=== PATIENT | male | born 1960 | race Caucasian/White ===

== ENCOUNTER 2017-02-23 22:02 | Emergency (ER) | payer OTHER ==
--- NOTE | ~2017-02-23 | ER ---
PATIENT'S NAME: [facility] AGE: 57 Y [address] ROOM: [place], [place] [address] LOCATION: [facility] ADMIT DATE: 02/23/2017 ER/Outpatient Report DISCHARGE DATE: 02/23/2017 FAMILY PHYSICIAN: Physician, Unknown ATTENDING PHYSICIAN: Celeste Castillo CHIEF COMPLAINT: Left hand laceration. TIME OF THE PATIENT ARRIVAL: 2202 hours. TIME OF THE PATIENT EVALUATION: 2202 hours. HISTORY OF PRESENT ILLNESS: This 57-year-old male presents to the ER with a left hand laceration that happened just prior to arrival. The patient was loading food at [facility] on a loading truck. He states he went to push the pallet and his hand was cut with either the pallet board or nail that was on the pallet board. He states that it cut him right through his glove. He states he is up-to-date on his tetanus shot. He states he has good sensation to his hand and his fingers and he does have good range of motion of his hand as well. He denies any other injury at this time. ALLERGIES: NO KNOWN ALLERGIES. MEDICATIONS: Please see medication list nurse's notes. PAST MEDICAL HISTORY: Hypertension. He had a left knee surgery. SOCIAL HISTORY: Denies smoking, drug, or alcohol use. REVIEW OF SYSTEMS: CONSTITUTIONAL: Denies any change in weight or fatigue. MUSCULOSKELETAL: No weakness or myalgias. HEME: No easy bruising or bleeding. SKIN: He has a laceration to his left hand. PHYSICAL EXAMINATION: VITAL SIGNS: Pulse is 85, respirations 16, temperature 98.2 degrees PATIENT'S NAME: CAR[facility]INA [facility] AGE: 57 Y [address] ROOM: [place], [place] [address] LOCATION: [facility] ADMIT DATE: 02/23/2017 ER/Outpatient Report DISCHARGE DATE: 02/23/2017 FAMILY PHYSICIAN: Physician, Unknown ATTENDING PHYSICIAN: Celeste Castillo tympanically, blood pressure is 185/111, and saturations 95% on room air. [place] Coma Score is 15. GENERAL: Alert, very anxious, 57-year-old male in [id number] distress. HEENT: Head: Normocephalic. He does display moist mucous membranes. EXTREMITIES: No clubbing or cyanosis. To his left upper extremity, he has good sensation distally to all of his fingers. He is able to flex and extend all of his fingers with no difficulty. He has good strength in his left thumb. He has good radial pulse in the left upper extremity as well. SKIN: He has a 6-cm laceration noted to the thenar eminence of the left hand. Does appear to have nicked the muscle. He does have some bleeding during examination. LABORATORY DATA: None were done. X-RAYS: X-rays of the left hand showed no foreign objects or fractures to the hand. IMPRESSION: A 6-cm laceration to the left thenar eminence. ASSESSMENT AND PLAN: Discussed the patient's care with Dr. Castillo. Dr. Castillo also evaluated the laceration. I did cleanse the laceration site with normal saline. I numbed the site with 1% lidocaine. He did have a small arterial vessel that was bleeding; so, we did inject that area with lidocaine with epi and applied pressure, which did allow the bleeding to stop at this time. I did cleanse around the laceration site with Betadine and flushed thoroughly with normal saline. I did place 4 subcutaneous sutures with 5-0 Vicryl and closed the wound with Ethilon. The patient did tolerate this well. We did cleanse the hand, placed the antibiotic ointment and bandage to the hand as well. I will cover him with Keflex to use as directed. He was also given a work note for restrictions on lifting until his sutures are removed in 10 to 14 days. We did give him a wound care handout. He may take Tylenol or ibuprofen as needed for pain control. The patient understands and agrees with care. ESTELLE ARMSTRONG PA-C FOR DO QUETA VERA/brendan /[id number] ATTENDING ADDENDUM: I saw and evaluated the patient. I have discussed with the PA, agree with the PA's findings and plan and agree with the documented note above. CELESTE CASTILLO DO d: 02/24/17 0347 t: 02/24/17 1709, OUTPATIENT REPORT
== END 2017-02-23 23:21 | disposition disaster alternative care site (69) ==
LOC: GACC 22:02
PROC: 0JQK0ZZ Repair Left Hand Subcutaneous Tissue and Fascia, Open Approach (ICD-10-PCS; principal; 2017-02-23)
DX: S61.412A Laceration without foreign body of left hand, initial encounter (principal); I10 Essential (primary) hypertension; W26.8XXA Contact with other sharp object(s), not elsewhere classified, initial encounter